=== PATIENT | female | born 1995 | race Caucasian/White ===

== ENCOUNTER 2021-02-05 10:02 | Emergency (ER) | payer OTHER, SELFPAY ==
[2021-02-05 11:24] VITALS: BP 130/87; PULSE 86; RESP 18; TEMP 36.3; O2SAT 97; BMI 37.3
--- NOTE | 2021-02-05 11:36 | ED.BACK ---
HPI - Back Pain/Injury General Chief Complaint: Back Pain/Injury Stated Complaint: back/pain/leg pain Time Seen by Provider: 02/05/21 11:36 Source: patient Mode of arrival: ambulatory Limitations: no limitations History of Present Illness HPI Narrative: 25 y/o female with history of chronic back pain, history of herniated discs in her cervical and lumbar spines (per MRI done in [place] in 2013) who presents to the ER with worsening lower and middle back pain for the last 2 weeks. 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 It slowly got better with time and rest. About 4 days ago she states she has worsening lower back pain that radiates down her left leg. She has some numbness to her left lower leg. She has no lower extremity weakness and no change in her gait. No falls or trauma. She has not been taking any medication for the pain. She denies bladder or bowel incontinence. She has no saddle paresthesias. MD elicited complaint: back pain Pertinent past history: prior back pain Onset (ago): week(s) (2) Timing: intermittent Severity: moderate Similar Symptoms Previously: Yes Quality: aching, spasming and throbbing Location: lumbar spine, right lower back, right upper back, left upper back and left lower back Radiation: left leg below the knee Exacerbating factors: movement and coughing/sneezing Relieving factors: immobilization Context: turning/twisting and bending Associated symptoms: loss of sensation in lower extremities Work related injury: No Related Data Previous Rx's Medication Instructions Recorded cyclobenzaprine 10 mg tablet 10 mg PO TID PRN #10 tab 02/05/21 tramadol 50 mg tablet 50 mg PO Q8H PRN #7 tab 02/05/21 Allergies Allergy/AdvReac Type Severity Reaction Status Date / Time ibuprofen [IBUPROFEN] Allergy Intermediate SWOLLEN Verified 02/05/21 11:28 LIPS, lip swelling Review of Systems Review of Systems: Constitutional: No Fever, No Chills Respiratory: No Cough, No Sputum Gastrointestinal: No Nausea, No Vomiting, No Diarrhea, No abdominal Pain Genitourinary: No Dysuria, No Urinary Frequency, No Hematuria, No incontinence Musculoskeletal: + joint pain, + Myalgias Skin: No Skin Lesions, No rash Neuro: No Weakness, + Numbness, No Dizziness, No Headache Psych: + Anxiety/Panic, No Depression Heme/Lymph: No Bruising, No Lymphadenopathy PMFSH Past Medical History Medical History (Updated 02/05/21 @ 11:59 by KWAME uQach) Asthma Chronic back pain Lumbar herniated disc Social History Social History Advance Directives: No Advance Directives Information Provided: No Physical Exam Vital Signs: Vital Signs: Last Vital Signs Temp 97.4 F 02/05/21 11:24 Pulse 86 02/05/21 11:24 Resp 18 02/05/21 11:24 BP 130/87 02/05/21 11:24 Pulse Ox 97 02/05/21 11:24 Body Mass Index 37.3 Appearance: Alert. Oriented X3. No acute distress. Neck: Normal inspection. Neck supple. No cervical spinal tenderness CVS: Normal heart rate and rhythm. Pulses normal. Respiratory: No respiratory distress. Breath sounds normal. Abdomen: Soft and nontender. +BS x4 Back: thoracic soft tissue tenderness and spasm throughout w/ paraspinal muscle spasm, left lower lumbar area with soft tissue tenderness and spinal tenderness in middle lumbar area. Skin: Skin warm and dry. Normal skin color. Normal skin turgor. No rashes. Extremities: No lower extremity edema. No swelling. Neuro: Oriented X 3. No motor deficit. No sensory deficit. ambulates with steady gait. Course Course Course Narrative: 25-year-old female with a history of chronic low back and neck pain presents to the ER with worsening pain, no trauma. She has no red flag symptoms low back pain. She may have worsening of her lumbar disc herniations however there is no sign of spinal cord compression at this time. She ambulates with a steady gait and has a nonfocal neuro exam. We discussed symptomatic management at this time. She has an appointment with her doctor on Wednesday. At this time an MRI can be arranged. No emergent need for an MRI right now. Will give a course of symptomatic and pain controlling medications and have her follow-up with her PCP. Stable for discharge home. Critical Care Time Critical Care Time Critical Care Time: No Discharge Plan Discharge Clinical Impression: Lumbar radiculopathy Thoracic back pain Qualifiers: Chronicity: chronic Back pain laterality: midline Qualified Code(s): M54.6 - Pain in thoracic spine Patient Disposition: Home, Self-Care Instructions: Lumbar Radiculopathy (ED), Thoracic Pain (ED), Lower Back Exercises (ED) Additional Instructions: No bending, lifting or twisting. Use ice several times per day for 20 minutes at a time for the next 48 hours and then change to heat. Take medications as prescribed to help with pain and discomfort. Recommend Tylenol 975 mg every 6 hours around the clock. Do not exceed 4,000 mg in a 24 hour period. Follow up with your Primary Care Doctor this week. If your pain worsens, if you develop new numbness, tingling, weakness, loss of function or incontinence call 911 or come back to the ER right away for evaluation. Prescriptions: New cyclobenzaprine 10 mg tablet 10 mg PO TID PRN (Reason: muscle spasm) Qty: 10 RF: 0 tramadol 50 mg tablet 50 mg PO Q8H PRN (Reason: pain) Qty: 7 RF: 0 Interventions: ED Discharge Assessment Last Done: 02/05/21 12:10 Discharge Date/Time: 02/05/21 12:11
--- NOTE | 2021-02-05 12:06 | PC.NURSE ---
PT AMBULATORY INTO [facility]. GAIT STEADY. SALMON FREELY. NEUROS INTACT. EVALUATED BY ANNEMARIE PUENTE. PT AWAKE, ALERT AND ORIENTED X 3. SKIN WARM AND DRY. RESP UNLABORED. DENIES N/V. C/O PAIN WORSE WITH MOVEMENT. PLAN IS FOR DC HOME. PT AGREEABLE TO PLAN. STATES NO QUESTIONS. PT SITTING UPRIGHT IN STRETCHER. NO FACIAL GRIMACING OR S/S OF DISTRESS.
== END 2021-02-05 12:11 | disposition home or self-care (01) ==
PROVIDERS: Emergency Provider Emergency Medicine; PCP Internal Medicine
DX: M54.16 Radiculopathy, lumbar region (principal); M54.6 Pain in thoracic spine
CPT/HCPCS: 99283

== ENCOUNTER 2021-07-28 19:16 | Emergency (ER) | payer OTHER, SELFPAY ==
[2021-07-28 23:25] VITALS: BP 115/72; PULSE 76; RESP 16; TEMP 36.8; O2SAT 99; BMI 38.5
--- NOTE | 2021-07-29 01:33 | ED_ITS ---
HPI - Back Pain/Injury General Chief Complaint: General Medical Stated Complaint: spinal tumor Time Seen by Provider: 07/29/21 00:29 Source: patient Mode of arrival: ambulatory Limitations: language barrier (Uruguayan-speaking) History of Present Illness HPI Narrative: 25-year-old female presenting to the ED with complaints of mid back pain radiating to her rib/epigastric area for the past few months. Reports that she had an MRI at [facility] proximally 1 week ago and told that she had ?a spinal tumor?. She reports she did not receive anything for pain. She reports the pain is the same as it has been for the past few months it is not worse. She reports she just needs something for pain. She denies any fevers, chills, dizziness, headaches, neck pain/stiffness, trouble swallowing or breathing, paresthesias, palpitations, chest pain or shortness of breath, dyspnea on exertion, orthopnea, rashes, recent falls or trauma, urinary or bowel incontinence or retention, IV drug use or any other symptoms complaints or concerns at this time. She reports she has been trying [id number] medic ation no symptomatic relief. MD elicited complaint: back pain Onset (ago): month(s) Timing: constant Severity: moderate Similar Symptoms Previously: Yes Quality: aching Location: thoracic spine Radiation: abdomen Exacerbating factors: movement, walking, deep breaths and lifting Relieving factors: none Context: unknown Associated symptoms: denies other symptoms Work related injury: No Related Data Previous Rx's Medication Instructions Recorded cyclobenzaprine 10 mg tablet 10 mg PO TID PRN #10 tab 02/05/21 tramadol 50 mg tablet 50 mg PO Q8H PRN #7 tab 02/05/21 acetaminophen 500 mg tablet 1,000 mg PO QID PRN #14 tab 07/29/21 (Tylenol Extra Strength) cyclobenzaprine 10 mg tablet 10 mg PO Q8H PRN #14 tab 07/29/21 oxycodone 5 mg tablet 5 mg PO Q6H PRN #14 tab 07/29/21 Allergies Allergy/AdvReac Type Severity Reaction Status Date / Time ibuprofen [IBUPROFEN] Allergy Intermediate SWOLLEN Verified 02/05/21 11:28 LIPS, lip swelling Review of Systems Review of Systems: Constitutional : No trauma, No Weight loss, No Fever, No Chills, ENT/Mouth : No Hearing loss, No Ear Pain, No Nasal Congestion, No Sinus Pain, No Hoarseness, No sore throat, No Rhinorrhea, No Swallowing Difficulty Cardiovascular : No Chest Pain, No SOB Respiratory : No Cough, No Dyspnea Gastrointestinal : No Nausea, No Vomiting, No Diarrhea, No abdominal Pain, No Hematochezia, No Melena Genitourinary : No Dysuria, No Urinary Frequency, No Hematuria, No Urinary or Bowel Incontinence/retention Musculoskeletal : + Back pain, No neck pain, No joint stiffness, No joint swelling Skin : No Skin Lesions, No rash or signs of infection Neuro : No Weakness, No radiation, No Numbness, No Paresthesias, No headache, no loss of bowel or bladder incontinence, no saddle anesthesia, Focal weakness, + radiation Denies history of IV drug usage. Yes all other systems are reviewed and are negative [facility] Past Medical History Attestation statement: The following information was validated with the patient. Medical History Asthma Chronic back pain Lumbar herniated disc Social History Social History Advance Directives: No Advance Directives Information Provided: Yes Physical Exam Vital Signs: Vital Signs: Last Vital Signs Temp 98.3 F 07/28/21 23:25 Pulse 76 07/28/21 23:25 Resp 16 07/28/21 23:25 BP 115/72 07/28/21 23:25 Pulse Ox 99 07/28/21 23:25 BMI result Body Mass Index 38.5 vital signs have been reviewed as normal and appeared to be correct. Blood pressure normal. Heart rate normal. Respiration rate normal. Temperature normal. Oxygen saturation normal. Appearance: Alert. Oriented X3. No acute distress. Head: Normal external exam. Normocephalic. Atraumatic. No Cervantes signs noted. No raccoon eyes noted Eyes: PERRLA. EOMI. Conjunctiva and sclera normal. Eyelids normal. ENT: EAC normal. TM's Normal. Pharynx normal. Uvula midline. Moist mucous membranes. No trismus noted. No drooling noted. No muffled voice noted. Neck: Normal inspection. Neck supple. FROM. No adenopathy. Thyroid Normal. No meningeal signs. No neck mass noted. CVS: Normal heart rate and rhythm. Heart sound normal. No murmurs noted. Pulses normal throughout. Respiratory: No respiratory distress. Painless inspiration. Breath sounds normal. No wheezes/rales/rhonchi noted. Chest nontender. No accessory muscle usage noted or decreased air movement noted. Abdomen: Soft and nontender. Bowel sounds normal in all 4 quadrants. No distention noted. No organomegaly noted. No visible injury noted. Back: No CVA tenderness. Full range of motion noted. No obvious deformities, or edema. Mild para-spinal muscular tenderness from thoracic to lumbar region to coccyx. Full ROM in back and lower extremities. 5/5 strength hip extension/flexion, abduction, adduction. Mild Lumbar pain with hip flexion against resistance. Straight leg raise test negative on right; Straight leg raise test negative on left; Reflexes normal ankle and knee bilaterally; EHL motor strength normal bilaterally. No rashes/lesion/induration/fluctuance or signs infection noted. Skin: Skin warm and dry. Normal skin color. Normal skin turgor. No rashes/lesions/lacerations noted. Extremities: No lower extremity edema. Extremities exhibit normal range of motion. Extremities nontender. Neuro: Oriented X 3. No motor deficit. No sensory deficit. Reflexes normal. Patient has a normal steady gait. Course Course Course Narrative: Pt c likely muscular pain, but could be herniated disc. I was able to obtain the records from [facility] for her MRI of her thoracic spine without contrast that was performed on 07/19/2021 and revealed that the patient has a hemangioma and small left paracentral disc protrusion at the T11 through T12 but no significant stenosis or cord or nerve root compression at this level or elsewhere in the thoracic spine. Neuro exam shows no deficits. Not c/w AAA/epidural abscess/dissection.No high risk Hx (Incont, fever, immunosupp, recent surgery/LP, coag, signif trauma, wt loss, puls mass, hx/o Ca, TB, or IVDU) to warrant a repeat MRI/CT today. Not c/w Pyelo/UTI/kidney stone/spinal fx. Not cauda equina syndrome. Therefore explained to the patient her results and I explained to her that we will send her home with symptomatic treatment instructions to follow-up with her PCP/neurosurgeon to return if any new or worsening symptoms. Patient understands agrees with this plan. MDM - Back Pain/Injury Medical Records Attestation: I reviewed the patient's medical records. Imaging Data MRI of thoracic spine done at [facility] without contrast: Attestation: I personally reviewed and interpreted this imaging study as follows: Radiologist's impression: Discharge Plan Discharge Clinical Impression: Hemangioma of bone, Protrusion of intervertebral disc of thoracic region, Chronic back pain Patient Disposition: Home, Self-Care Instructions: Thoracic Disc Herniation (ED) Prescriptions: New acetaminophen [Tylenol Extra Strength] 500 mg tablet 1,000 mg PO QID PRN (Reason: fever or pain) Qty: 14 0RF oxycodone 5 mg tablet 5 mg PO Q6H PRN (Reason: pain) Qty: 14 0RF cyclobenzaprine 10 mg tablet 10 mg PO Q8H PRN (Reason: Muscle spasm) Qty: 14 0RF No Action cyclobenzaprine 10 mg tablet 10 mg PO TID PRN (Reason: muscle spasm) Qty: 10 0RF tramadol 50 mg tablet 50 mg PO Q8H PRN (Reason: pain) Qty: 7 0RF Referrals: Physician,Unknown J [Primary Care Provider] - 2 days (your pcp) Interventions: LWBS Worksheet Last Done: 07/29/21 01:17 Print Language: Uruguayan
== END 2021-07-29 02:55 | disposition home or self-care (01) ==
PROVIDERS: Emergency Provider Emergency Medicine Emergency Medical Services
DX: D18.09 Hemangioma of other sites (principal); M51.24 Other intervertebral disc displacement, thoracic region; G89.29 Other chronic pain; M54.9 Dorsalgia, unspecified
CPT/HCPCS: 99281; 99282; 99283

== ENCOUNTER 2024-10-02 11:16 | Emergency (ER) | payer OTHER, SELFPAY ==
--- NOTE | 2024-10-02 11:19 | ECG_ITS ---
Test Reason : cp Blood Pressure : */* mmHG Vent. Rate : 112 BPM Atrial Rate : 112 BPM P-R Int : 118 ms QRS Dur : 80 ms QT Int : 330 ms P-R-T Axes : 58 55 -4 degrees QTcB Int : 450 ms Sinus tachycardia Nonspecific ST abnormality Abnormal ECG When compared with ECG of 24-Nov-2007 15:37, Nonspecific ST abnormality is now Present Referred By: Generic ED Physician Electronically Signed By: DARREN SCOTT MD
[2024-10-02 11:26] VITALS: BP 151/99; PULSE 100; RESP 19; TEMP 36.6; O2SAT 100; BMI 40.6
--- NOTE | 2024-10-02 11:29 | ED_ITS ---
HPI - Chest Pain General Chief Complaint: Chest Pain Stated Complaint: chest pain, Upper Back Pain, numb face Time Seen by Provider: 10/02/24 12:57 Source: patient Mode of arrival: ambulatory Limitations: no limitations History of Present Illness ED Provider: HPI narrative: 28-year-old female, with Depo shots presenting with chest pain she feels like she has a hard time taking a deep breath in, she also smokes no fevers or chills, no pleurisy no recent surgeries no history of blood clots. Related Data Previous Rx's ?Medication ?Instructions ?Recorded cyclobenzaprine 10 mg tablet 10 mg PO TID PRN muscle spasm #10 02/05/21 tabs tramadol 50 mg tablet 50 mg PO Q8H PRN pain #7 tabs 02/05/21 acetaminophen 500 mg tablet 1,000 mg (2 x 500 mg) PO QID PRN 07/29/21 (Tylenol Extra Strength) fever or pain #14 tabs cyclobenzaprine 10 mg tablet 10 mg PO Q8H PRN Muscle spasm #14 07/29/21 tabs oxycodone 5 mg tablet 5 mg PO Q6H PRN pain #14 tabs 07/29/21 diazepam 2 mg tablet (Valium) 2 mg PO TID PRN spasms 2 days #6 10/02/24 tabs prednisone 20 mg tablet 40 mg (2 x 20 mg) PO DAILY 5 days 10/02/24 #10 tabs Allergies Allergy/AdvReac Type Severity Reaction Status Date / Time ibuprofen [IBUPROFEN] Allergy Intermediate SWOLLEN Verified 10/02/24 11:27 LIPS, lip swelling Review of Systems 2 Review of Systems: Yes all other systems are reviewed and are negative PMFSH Past Medical History Medical History Asthma Chronic back pain Lumbar herniated disc Social History Social History Advance Directives: No Advance Directives Information Provided: Yes Do you have a plan to hurt others: No Plan Physical Exam 2 Vital Signs: Vital Signs: Last Vital Signs Temp 98 F 10/02/24 11:26 Pulse 100 10/02/24 11:26 Resp 19 10/02/24 11:26 BP 151/99 H 10/02/24 11:26 Pulse Ox 100 10/02/24 11:26 O2 Del Method Room Air 10/02/24 11:26 BMI result Body Mass Index 40.6 Const: Other: * Gen: ?Overall well-appearing patient * HEENT: PERRLA, EOMI, MMM, * Neck: Supple, no LAD * CV: RRR, no obvious murmurs appreciated * Resp: ?No wheezing rales rhonchi no stridor moving air well * Abd: ?Bowel sounds are present, no tenderness no rebound no rigidity * MSK: FROM, strength 5/5 all extremities, tenderness all along her back, * Skin: Warm, dry, intact, * Neuro: ?Alert and oriented x3, moving upper and lower extremities symmetrically, no obvious facial asymmetry noted Course Course Course Narrative: RME, this is a rapid medical exam performed by Paddy Beltran please refer to primary provider for complete H&P- 28 old female presents for evaluation of chest pain, back pain. She has a reports some numbness to her face which has happened before. Symptoms started 2 days ago. Plan for cardiac workup Medications Administered Discontinued Medications Generic Name Dose Route Start Last Admin Trade Name Alokq PRN Reason Stop Dose Admin Dexamethasone 10 mg 10/02/24 13:12 10/02/24 14:20 Dexamethasone 2 Mg Tablet PO 10/02/24 13:13 10 mg ONCE ONE Administration Lidocaine 1 patch 10/02/24 13:12 10/02/24 14:20 Lidocaine 4 % Patch Adh..Patch TRANSDERMA 10/02/24 13:13 1 patch ONCE ONE Administration Protocol Oxycodone HCl 5 mg 10/02/24 13:12 10/02/24 14:20 Oxycodone Hcl Immed Release 5 Mg Tablet PO 10/02/24 13:13 5 mg ONCE ONE Administration Medical Decision Making Medical Decision Making [facility] Narrative: Unable to PERC out, ECG with tachycardia, she is on Depo shots, we will obtain D-dimer. Otherwise her cardiac workup has been reassuring, no evidence for ACS, dysrhythmia, nothing to suspect pneumothorax on physical exam, if workup is negative she will be discharged. Differential Diagnosis Differential Diagnoses: The differential diagnosis associated with the presentation includes ACS, pneumothorax, aortic dissection, PE, Boerhaave syndrome Lab Data [facility] Lab Attestation statement: I reviewed the patient's lab results. 10/02/24 12:07 10/02/24 12:07 Labs: Lab Results 10/02/24 10/02/24 Range/Units 12:07 14:26 WBC 14.9 H (4.8-10.8) X10*3/uL RBC 4.76 (4.20-5.50) X10*6/uL Hgb 14.1 (12.0-16.0) g/dl Hct 43.9 (37.0-47.0) % MCV 92.2 (80.0-98.0) fL MCH 29.6 (27.0-33.0) pg MCHC 32.1 (31.0-35.0) g/dl RDW 12.5 (11.0-16.0) % Plt Count 257 (160-400) X10*3/uL MPV 10.4 (9.4-12.3) fL Immature Gran % (Auto) 0.5 H (0.0-0.4) % Neut % (Auto) 76.4 H (45-73) % Lymph % (Auto) 17.2 L (20-40) % Hendricks % (Auto) 5.2 (2-11) % Eos % (Auto) 0.4 (0-4) % Baso % (Auto) 0.3 (0-2) % Lymph # (Auto) 2.6 (1.2-4.9) X10*3/uL Hendricks # (Auto) 0.8 (0.1-1.2) X10*3/uL Eos # (Auto) 0.1 (0.0-0.4) X10*3/uL Baso # (Auto) 0.0 (0.0-0.2) X10*3/uL Abs Immat Gran (auto) 0.08 H (0.00-0.03) X10*3/uL Absolute Neuts (auto) 11.4 H (2.0-8.3) x10*3/uL Absolute Nucleated RBC 0.000 (0.0-0.012) X10*3/uL Nucleated RBC % (auto) 0.0 (0.0-0.2) /100WBC D-Dimer High Sensitivty < 150 NG/ML Sodium 142 (135-145) mmol/L Potassium 4.1 (3.3-5.1) mmol/L Chloride 108 (96-108) mmol/L Carbon Dioxide 26 (22-29) mmol/L Anion Gap 12 (12-20) BUN 5 L (9-16) mg/dL Creatinine 0.76 (0.5-1.4) mg/dL Estim Creat Clear Calc 120.1 Estimated GFR > 60 Random Glucose 85 (60-115) mg/dL Calcium 9.8 (8.4-10.2) mg/dL Total Bilirubin 0.2 (0.0-1.0) mg/dL AST 14 (5-31) U/L ALT 11 (0-31) U/L Alkaline Phosphatase 81 (39-117) U/L Troponin I High Sens < 2.7 (<3.5-17.0) ng/L Total Protein 7.7 (6.5-8.0) g/dL Albumin 4.7 (3.5-5.0) g/dL Lipase 24 (8-78) U/L Beta HCG, Quant < 2 mIU/mL Independent Interpretation I performed an independent interpretation of an: EKG (112 beats per minute, otherwise normal ECG without dysrhythmia, AV karen blocks or ST-T changes to suspect underlying ACS, my independent interpretation) Discharge Plan Discharge Clinical Impression: Pain, upper back Dyspnea Qualifiers: Dyspnea type: other forms of dyspnea Qualified Code(s): R06.09 - Other forms of dyspnea Patient Disposition: Home, Self-Care Additional Instructions: Continue steroids starting tomorrow hopefully help with some inflammation, lidocaine patches to your back, you can also try to use capsaicin ointment patches, Valium for spasm follow up with the PCP. This is getting worse he may need physical therapy. Your workup has been reassuring including blood work, EKG and D-dimer to make sure you do not have any blood clots Prescriptions: New diazepam [Valium] 2 mg tablet 2 mg PO TID PRN (Reason: spasms) 2 Days Qty: 6 0RF prednisone 20 mg tablet 40 mg PO DAILY 5 Days Qty: 10 0RF No Action cyclobenzaprine 10 mg tablet 10 mg PO TID PRN (Reason: muscle spasm) Qty: 10 0RF tramadol 50 mg tablet 50 mg PO Q8H PRN (Reason: pain) Qty: 7 0RF acetaminophen [Tylenol Extra Strength] 500 mg tablet 1,000 mg PO QID PRN (Reason: fever or pain) Qty: 14 0RF oxycodone 5 mg tablet 5 mg PO Q6H PRN (Reason: pain) Qty: 14 0RF cyclobenzaprine 10 mg tablet 10 mg PO Q8H PRN (Reason: Muscle spasm) Qty: 14 0RF Print Language: Samoan
[2024-10-02 12:12] LABS: MANUAL DIFF FLAG NO
[2024-10-02 12:15] LABS: Basophils Percent Auto 0.3 % (0-2); Eosinophils Absolute Auto 0.1 X10*3/uL (0.0-0.4); Eosinophils Percent Auto 0.4 % (0-4); Hematocrit 43.9 % (37.0-47.0); Hemoglobin 14.1 g/dl (12.0-16.0); Imm Gran Abs Auto 0.08 X10*3/uL (0.00-0.03); Imm Gran Pct Auto 0.5 % (0.0-0.4); Lymphocytes Absolute Auto 2.6 X10*3/uL (1.2-4.9); Lymphocytes Percent Auto 17.2 % (20-40); Mean Corpuscular HGB Conc 32.1 g/dl (31.0-35.0); Mean Corpuscular Hemoglobin 29.6 pg (27.0-33.0); Mean Corpuscular Volume 92.2 fL (80.0-98.0); Mean Platelet Volume 10.4 fL (9.4-12.3); Monocytes Absolute Auto 0.8 X10*3/uL (0.1-1.2); Monocytes Percent Auto 5.2 % (2-11); Neutrophils Absolute Auto 11.4 x10*3/uL (2.0-8.3); Neutrophils Percent Auto 76.4 % (45-73); Platelet Count 257 X10*3/uL (160-400); Red Blood Count 4.76 X10*6/uL (4.20-5.50); Red Cell Distribution Width 12.5 % (11.0-16.0); White Blood Count 14.9 X10*3/uL (4.8-10.8)
[2024-10-02 12:37] LABS: Troponin-I High Sensitivity < 2.7 ng/L (<3.5-17.0)
[2024-10-02 12:38] LABS: Alanine Aminotransferase 11 U/L (0-31); Albumin Level 4.7 g/dL (3.5-5.0); Alkaline Phosphatase 81 U/L (39-117); Anion Gap 12 (12-20); Aspartate Amino Transferase 14 U/L (5-31); Bilirubin Total 0.2 mg/dL (0.0-1.0); Blood Urea Nitrogen 5 mg/dL (9-16); Calcium 9.8 mg/dL (8.4-10.2); Carbon Dioxide 26 mmol/L (22-29); Chloride 108 mmol/L (96-108); Creatinine Clr Calc Pharmacy 120.1; Estimated Glomerular Filt Rate > 60; Glucose Random 85 mg/dL (60-115); Lipase 24 U/L (8-78); Potassium 4.1 mmol/L (3.3-5.1); Sodium 142 mmol/L (135-145); Total Protein 7.7 g/dL (6.5-8.0)
[2024-10-02 12:42] LABS: HCG Quantitative < 2 mIU/mL
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
[2024-10-02] MEDS: oxyCODONE HCl Immed Release 5 MG TABLET PO (14:20)
[2024-10-02] MEDS: Lidocaine 4 % Patch ADH..PATCH 1 PATCH TRANSDERMA (14:20)
[2024-10-02] MEDS: dexAMETHasone 2 MG TABLET 10 MG PO (14:20)
[2024-10-02 14:46] LABS: D Dimer High Sensitivity < 150 NG/ML
[2024-10-02 15:33] VITALS: BP 117/69; PULSE 97; RESP 16; TEMP 36.6; O2SAT 99
== END 2024-10-02 15:34 | disposition home or self-care (01) ==
PROVIDERS: Physician Assistant; Emergency Provider Emergency Medicine
DX: R07.89 Other chest pain (principal); R06.09 Other forms of dyspnea; M54.6 Pain in thoracic spine; R00.0 Tachycardia, unspecified; R10.2 Pelvic and perineal pain; Z79.899 Other long term (current) drug therapy
CPT/HCPCS: 36415; 80053; 83690; 84484; 84702; 85025; 85379; 93005; 99283; J8540

== ENCOUNTER → 2024-10-02 11:19 | Outpatient (BNV) | payer OTHER, SELFPAY | PROVIDERS: Emergency Provider Emergency Medicine; Visit Provider Internal Medicine Cardiovascular Disease | DX: R00.0 Tachycardia, unspecified (principal) | CPT/HCPCS: 93010 ==